=== PATIENT | female | born 1995 ===

== ENCOUNTER 2018-10-07 05:47 | Inpatient (IN) | payer MEDICAID, SELFPAY ==
[2018-10-07 06:44] VITALS: BMI 34.0
[2018-10-07] MEDS ORDERED: NS / Oxytocin 40 units/1000ml 1,000 ML IV PRN (06:56)
[2018-10-07] MEDS ORDERED: Lidocaine 1% (PF) 30 ML VIAL SC PRN (06:56)
[2018-10-07] MEDS ORDERED: Calcium Gluc 4.6 MEQ/10 ML (100 MG/ML) SLOW IVP PRN (06:56)
[2018-10-07] MEDS ORDERED: Butorphanol Tartrate 1 MG/ML VIAL SLOW IVP PRN (06:56)
[2018-10-07] MEDS ORDERED: Ibuprofen 800 MG TAB PO PRN (06:56)
[2018-10-07] MEDS ORDERED: Promethazine HCl 25 MG/ML VIAL IM PRN ×3 (06:56→18:23)
[2018-10-07] MEDS ORDERED: HYDROcodone/Acetaminophen 5/325 mg Tablet PO PRN ×3 (06:56→19:07)
[2018-10-07] MEDS ORDERED: Magnesium Sulfate 20 gm/500 ml 20 GM/500 ML BAG IVPB SCH (07:00)
[2018-10-07] MEDS ORDERED: Magnesium Sulfate 20 GM/WATER 500 ML BAG IVPB SCH (07:00)
--- NOTE | 2018-10-07 07:00 | PDOC.LDHP ---
Labor and Delivery H&P HPI: Patuent brought in from [facility] Cc: "arrested in labor at 8cm" HPI: 23 yo at 41 weeks 2 days with "no cervical change since last pm at 1800...was 8cm". Our exam here reveals cervix to only be 4-5cm, BOWI. No Morales, no visual changes, no RUQ pain. Good FM. Review of Systems: Complete ROS complete and as per HPI Current gestational age (weeks): 41 (2 days) Dating criteria: last menstrual period Grav: 2 Para: 0 Current complications: none Abnormal US findings: No Current medications: pre-sophie vitamins Allergies/Adverse Reactions: Allergies Allergy/AdvReac Type Severity Reaction Status Date / Time No Known Drug Allergies Allergy Verified 10/07/18 06:33 - Physical Exam Vital signs reviewed and normal: yes Abnormal vital signs: BP was 152/72 General: NAD Heart: RRR Lungs: CTAB Abdomen: gravid Extremeties: no edema FHT: category 1 [place] contractions every: irregular - Vaginal Exam cm dilated: 4 (max 5) Effacement: 50% Station: -1 - Assessment L&D Assessment: term patient in labor (Full term at 21 weeks 2 days with persistent latent phase; PIH suspected) - Plan Plan: admit to L&D, informed consent obtained, magnesium for seizure prophylaxis , anesthesia consult for pain management, other (WE will start pitocin for augemntation due to PIH and EGA. I will order urine protein:creatinine, and CMP in addition to routine labs; Magsulfate for siezure prophylaxis)
[2018-10-07] MEDS: Lactated Ringer's 1,000 ML IV SCH ×2 (07:28→15:35)
[2018-10-07 07:35] LABS: Hemoglobin 12.8 g/dL (12.0-16.0); Mean Corpuscular HGB CONC 33.6 g/dL (32.0-36.0); Mean Corpuscular Hemoglobin 30.7 pg (27.0-31.0); Mean Corpuscular Volume 91.6 fL (78.0-98.0); Platelet Count 212 thou/uL (130-400); RBC Distribution Width 14.1 % (11.5-14.5); Red Blood Cell (RBC) Count 4.16 mill/uL (4.20-5.40); White Blood Cell (WBC) Count 11.6 thou/uL (4.8-10.8)
[2018-10-07] MEDS ORDERED: Fentanyl 4 mcg/Bup 0.1% Cadd 100 ML ONE ×2 (07:41→15:15)
[2018-10-07 07:58] LABS: ALT (SGPT) 8 U/L (8-55); AST (SGOT) 17 U/L (5-34); Albumin 3.9 g/dL (3.5-5.0); Alkaline Phosphatase 168 U/L (40-150); Anion Gap 16 mmol/L (10-20); BUN (Urea Nitrogen) 7 mg/dL (7.0-18.7); Bilirubin, Total 0.5 mg/dL (0.2-1.2); Calc. Creatinine Clearance 194 mL/min (70-130); Calcium 9.6 mg/dL (7.8-10.44); Carbon Dioxide 19 mmol/L (22-29); Chloride 105 mmol/L (98-107); Estimated GFR-MDRD Greater than 90; Globulin 2.9 g/dL (2.4-3.5); Glucose 97 mg/dL (70-105); Potassium 3.7 mmol/L (3.5-5.1); Protein, Total 6.8 g/dL (6.0-8.3); Sodium 136 mmol/L (136-145)
--- NOTE | 2018-10-07 08:06 | PDOC.EVN ---
Event Note - Event Note Event Note: CBC and CMP are normal, Uprotein pending
[2018-10-07] MEDS ORDERED: Lidocaine 1.5%/Epinephrine 1:200,000 5 ML AMPUL IJ ONE (08:08)
[2018-10-07 08:15] LABS: Syphilis Antibody Nonreactive (Nonreactive); Syphilis Antibody Index 0.02 S/CO (<1.00 Non-Reactive)
[2018-10-07] MEDS ORDERED: Lactated Ringer's 500 ML IV PRN (08:25)
[2018-10-07] MEDS ORDERED: ePHEDrine/0.9% NaCl/PF SYRINGE 50 mg/10 ml SLOW IVP PRN (08:25)
[2018-10-07] MEDS ORDERED: Eucerin (Mineral Oil/Petrolatum,White) 30 gm Jar TOP PRN ×2 (08:25→18:23)
[2018-10-07] MEDS ORDERED: Ondansetron PF 4 MG/2 ML Vial IVP PRN ×3 (08:25→19:07)
[2018-10-07] MEDS ORDERED: diphenhydrAMINE 50 MG/ML VIAL IVP PRN ×2 (08:25→18:23)
[2018-10-07] MEDS ORDERED: Naloxone HCl 0.4 mg/ml Vial IVP PRN ×4 (08:25→18:23)
[2018-10-07] MEDS ORDERED: Acetaminophen 325 MG TAB PO PRN ×2 (08:25→19:07)
--- NOTE | 2018-10-07 08:25 | PDOC.EVN ---
Event Note - Event Note Event Note: Received report from Dr. Childs. at 41 weeks here from [facility]. Told was 8 cm, exam here now 4-5 cm. BPs elevated on admit. Pitocin and Mg ordered. Getting epidural now.
[2018-10-07] MEDS: NS w/ Oxytocin 10 units 500 ML IV SCH ×2 (08:28→09:00)
[2018-10-07] MEDS: Fentanyl 4 mcg/Bupivacaine 0.1% Cassette 100 ML EPIDURAL SCH ×2 (08:30→15:38)
[2018-10-07] MEDS ORDERED: Communication Order-Pharmacy FS SCH ×2 (08:30→18:30)
[2018-10-07 08:37] LABS: HBSAg Index 0.21 S/CO (0-0.99); HIV (1/2) Antibody/Antigen Non-Reactive (NonReactive); HIV 1/2 INDEX 0.08 S/CO (<1.00); Hep B Surf Ag Non-Reactive S/CO (NonReactive)
[2018-10-07 09:40] LABS: Creatinine, Urine 31.33 mg/dL (47-110)
--- NOTE | 2018-10-07 10:01 | PDOC.EVN ---
Event Note - Event Note Event Note: Comfortable with epidural. Bps are reassuring now. Labs are negative, urine dip is trace. Fhts stable, reassuring. UCs q 2- 4 min, pit at 6 mu/min. Arom- small amt. of thick mec. Plan; Place IUPC for amnioinfusion. Cont. pitocin. Will defer Mg at this time.
[2018-10-07] MEDS ORDERED: Bupivacaine HCl 0.25%/Epi 0.0005/PF 10 ML VIAL FS ONE (11:11)
--- NOTE | 2018-10-07 12:48 | PDOC.EVN ---
Event Note - Event Note Event Note: Remains comfortable with epidural. SVE remains 5 cm per labor RN. FHTs stable, reassuring. UCs q 2-3 mins. Pit at 10 mu/min. IUPC with infusion in place. A/P; no progress since last exam, watch closely.
--- NOTE | 2018-10-07 14:11 | PDOC.EVN ---
Event Note - Event Note Event Note: Comfortable. SVE now 7/90/0, -1, vtx. Fhts stable. UCs q 2-3 mins. Pit at 12 mu/min. Plan: Cont. pitocin and amnioinfusion.
--- NOTE | 2018-10-07 16:43 | PDOC.EVN ---
Event Note - Event Note Event Note: Comfortable, epidural rebolused. SVe remains 7 cm, now with edema of cervix and caput of vertex. Fhts stable, reassuring. Ucs q 2-3 mins. Pit decreased to 6 earlier for hyperstimulated pattern. A/P: no progress, advised 1* C/S for FTP. Risks/benefits discussed.
[2018-10-07] MEDS ORDERED: Bicitra 30 ML UDCUP ONE (16:46)
[2018-10-07] MEDS ORDERED: CEFAZOLIN 2 GM/50 ML BAG ONE (16:46)
[2018-10-07] MEDS ORDERED: Lidocaine 2% 10 ML INJ ONE (17:47)
[2018-10-07] MEDS ORDERED: Lidocaine 2% PF 5 ML VIAL ONE (18:00)
[2018-10-07] MEDS ORDERED: Ketorolac Tromethamine 30 MG/ML VIAL ONE (18:00)
[2018-10-07] MEDS ORDERED: PHENYLEPHRINE-NS 100 MCG/ML 10 ML SYRINGE ONE (18:00)
[2018-10-07] MEDS ORDERED: Ondansetron PF 4 MG/2 ML Vial ONE (18:00)
[2018-10-07] MEDS ORDERED: Oxytocin 10 UNITS/ML VIAL ONE (18:13)
[2018-10-07] MEDS ORDERED: Misoprostol 200 MCG TAB ONE (18:13)
[2018-10-07] MEDS ORDERED: Methylergonovine 0.2 MG/ML VIAL ONE (18:14)
[2018-10-07] MEDS ORDERED: Ondansetron HCl/PF 4 MG/2 ML Vial IVP PRN (18:23)
[2018-10-07] MEDS ORDERED: Promethazine HCl 25 MG SUPP PR PRN (18:23)
[2018-10-07] MEDS ORDERED: Naloxone HCl 0.4 mg/ml Vial IV PRN (18:23)
[2018-10-07] MEDS ORDERED: L&D-Morphine 4 MG/ML VIAL SLOW IVP PRN (18:23)
[2018-10-07] MEDS ORDERED: Meperidine HCl/PF 25 MG/ML VIAL SLOW IVP PRN (18:23)
[2018-10-07] MEDS ORDERED: HYDROmorphone 2 MG/ML VIAL SLOW IVP PRN (18:23)
[2018-10-07] MEDS ORDERED: Tranexamic Acid 1,000 MG/10 ML VIAL ONE (18:26)
[2018-10-07] MEDS ORDERED: Fentanyl 100 MCG/2 ML VIAL ONE (18:32)
[2018-10-07] MEDS ORDERED: Adacel (T-DAP) 0.5 ML SYRINGE IM ONE (19:07)
[2018-10-07] MEDS ORDERED: Lanolin Ointment 7 GM TUBE TOP PRN (19:07)
[2018-10-07] MEDS ORDERED: Simethicone Chewable 80 MG TAB PO PRN (19:07)
[2018-10-07] MEDS ORDERED: Morphine PF 1 MG/ML SYR ONE (19:15)
[2018-10-07] MEDS: Docusate Calcium (SURFAK) 240 MG CAP PO SCH (21:05)
[2018-10-07 21:46] LABS: #Lymphocytes 0.8 thou/uL (1.20-3.40); #Monocytes 0.8 thou/uL (0.11-0.59); #Neutrophils 12.9 thou/uL (1.40-6.50); %Basophils 0.1 % (0.0-1.0); %Eosinophils 0.1 % (0.0-10.0); %Lymphocytes 5.2 % (21.0-51.0); %Monocytes 5.5 % (0.0-10.0); Hemoglobin 9.6 g/dL (12.0-16.0); Mean Corpuscular HGB CONC 33.6 g/dL (32.0-36.0); Mean Corpuscular Hemoglobin 31.3 pg (27.0-31.0); Mean Corpuscular Volume 92.9 fL (78.0-98.0); Platelet Count 152 thou/uL (130-400); Red Blood Cell (RBC) Count 3.08 mill/uL (4.20-5.40); White Blood Cell (WBC) Count 14.5 thou/uL (4.8-10.8)
[2018-10-07] MEDS ORDERED: Acetaminophen 1,000 MG in Premix Bag 1 BAG IVPB PRN (23:59)
--- NOTE | 2018-10-08 01:16 | OP ---
DATE OF PROCEDURE: 10/07/2018 SURGEON: Mychal Rees MD [employer] SURGEON: Ted Chiu DO PROCEDURE: Primary low segment transverse section via Pfannenstiel incision. FINDINGS: 1. Viable male , weight 9 pounds 4 ounces. Apgars 8 and 8, found in the transverse presentation. 2. Normal uterus, tubes, and ovaries bilaterally. 3. Uterine atony requiring treatment with Pitocin drip, Methergine 0.2 mg IM, Cytotec 800 mg per rectum, and TXA 1 g given intravenously with good response. ESTIMATED BLOOD LOSS: 1000 mL, QBL pending. COMPLICATIONS: None. PROPHYLAXIS: Ancef 2 g prior to incision. TECHNIQUE IN DETAIL: After good epidural anesthesia was achieved, the patient was prepped and draped in usual sterile fashion in the supine position with a leftward tilt. A transverse incision in the skin was made two fingerbreadths above the symphysis pubis and the incision was carried down into the abdominal cavity. Uterus was identified, and a bladder flap was created in the perineum. A transverse incision was made across the lower uterine segment. The fetus was found in the occiput transverse presentation. This was delivered and the cord was clamped and cut. The baby was handed to neonatology personnel. Cord blood was then obtained. The uterus was curetted with a dry lap pad to remove all remaining placental fragments. Closure of the uterine incision was begun using a running locking suture of Monocryl. In the left angle, some interrupted stitches were required for complete hemostasis. Atony was encountered throughout closure of the uterus. She was given Pitocin drip, Methergine, and Cytotec along with TXA as described above. The uterus was replaced in the abdominal cavity and the pelvic gutters were cleared of all clots and debris. The fascia was then closed using two sutures of Monocryl brought laterally to the midline. The subcutaneous tissue was irrigated well and was made dry using Bovie coagulation technique. Interrupted sutures of plain gut were used to approximate the subcutaneous tissue. The skin was closed with metal blayne. Sponge, lap, and needle counts were correct x2. At the conclusion of the case, her fundus was firm and there was no vaginal bleeding seen.. Job ID: [id number] [facility]
[2018-10-08] MEDS: Misoprostol 100 MCG TAB PO SCH ×3 (01:26→16:48)
[2018-10-08] MEDS ORDERED: Ketorolac Tromethamine 30 MG/ML VIAL IVP PRN (02:00)
[2018-10-08] MEDS ORDERED: Clindamycin/D5W 900 mg/50 ml Premix Bag ONE ×2 (02:02→10:05)
--- NOTE | 2018-10-08 02:04 | PDOC.PP ---
Post Progress Note Post Day #: POD#1 Subjective: C/o chills. Temp now = 102. PO intake tolerated: no Flatus: no Ambulation: no Weight Weight 84.368 kg - Physical Examination Respiratory: non-labored breathing Abdominal: no distention Skin: CS incision dry & intact Neurological: no gross focal deficits Psychiatric: A&Ox3 Result Diagrams: 10/07/18 21:36 10/07/18 07:24 Additional Labs: Post Labs Blood Type B POSITIVE 10/07/18 07:24 Hep Bs Antigen Non-Reactive S/CO (NonReactive) 10/07/18 07:24 - Assessment/Plan POD#1 s/p 1* C/S for FTP with long labor, atony with significant EBL. CBC earlier; WBC+ 14.5, H/H= 9.6/28.6. Will start Gent/Clinda Observe closely.
[2018-10-08] MEDS: Lactated Ringer's 1,000 ML IV SCH ×4 (02:10→16:26)
[2018-10-08] MEDS: Gentamicin Sulfate 80 MG in Premix Bag 1 BAG IVPB SCH ×3 (03:06→23:11)
[2018-10-08] MEDS: Ampicillin 2 GM in Sodium Chloride 0.9% 100 ML IVPB SCH ×3 (06:34→17:28)
[2018-10-08 07:07] LABS: Hemoglobin 7.8 g/dL (12.0-16.0); Mean Corpuscular Hemoglobin 30.9 pg (27.0-31.0); Mean Corpuscular Volume 93.7 fL (78.0-98.0); Mean Platelet Volume 7.1 fL (7.4-10.4); Platelet Count 146 thou/uL (130-400); RBC Distribution Width 13.9 % (11.5-14.5); Red Blood Cell (RBC) Count 2.53 mill/uL (4.20-5.40); White Blood Cell (WBC) Count 11.9 thou/uL (4.8-10.8)
[2018-10-08] MEDS: Ibuprofen 800 MG TAB PO SCH ×4 (08:49→21:44)
[2018-10-08] MEDS: Prenatal Vitamin 1 TAB PO SCH (08:49)
[2018-10-08] MEDS: Docusate Calcium (SURFAK) 240 MG CAP PO SCH ×2 (08:49→21:44)
[2018-10-08] MEDS: Clindamycin/D5W 900 MG in Premix Bag 1 BAG IVPB SCH ×3 (10:10→18:33)
[2018-10-09] MEDS: Ampicillin 2 GM in Sodium Chloride 0.9% 100 ML IVPB SCH ×4 (00:34→18:24)
[2018-10-09] MEDS: Clindamycin/D5W 900 MG in Premix Bag 1 BAG IVPB SCH ×3 (02:09→18:33)
[2018-10-09] MEDS: Ibuprofen 800 MG TAB PO SCH ×3 (06:35→21:37)
[2018-10-09] MEDS: Gentamicin Sulfate 80 MG in Premix Bag 1 BAG IVPB SCH ×2 (06:35→17:15)
[2018-10-09] MEDS ORDERED: HYDROcodone/Acetaminophen 5/325 mg Tablet PO PRN (07:43)
--- NOTE | 2018-10-09 08:08 | PRG ---
DATE OF SERVICE: 10/09/2018 POSTOPERATIVE NOTE SUBJECTIVE: The patient is a 23-year-old female, who is postop day 2, status post a primary for failure to progress. The patient was placed on ampicillin, gentamicin, and clindamycin yesterday morning for temperature of 102. The patient reports that she is tolerating p.o., voiding on her own, having moderate pain control, and is ambulating some. She reports that she has been on ibuprofen and Tylenol that just has not been sufficient for her pain. OBJECTIVE: VITAL SIGNS: Temperature 98.6, pulse of 70, respiratory rate of 18, and blood pressure 120/58. GENERAL: She appears to be in no acute distress. She is alert and oriented. Cooperative and pleasant to interact with. HEENT: Head is normocephalic, atraumatic. Incision is clean, dry, and intact with blayne. EXTREMITIES: Nontender. There is a foul odor smell that the patient reports was present at the time of delivery. ASSESSMENT AND PLAN: The patient is postop day 2, status post a primary section for failure to progress on ampicillin, gentamicin, and clindamycin for chorioamnionitis and a T-max of 102 around the time of delivery. The patient will continue on antibiotics for the next 24 hours and will be monitoring this odor smell. I have also added hydrocodone to her pain regimen to help for better pain control. We will reassess tomorrow. Job ID: [id number]
[2018-10-09] MEDS: Docusate Calcium (SURFAK) 240 MG CAP PO SCH ×2 (08:51→21:37)
[2018-10-09] MEDS: Prenatal Vitamin 1 TAB PO SCH (08:51)
[2018-10-09] MEDS: HYDROcodone/Acetaminophen 5/325 mg Tablet PO PRN ×2 (08:55→21:38)
[2018-10-09] MEDS: Lactated Ringer's 1,000 ML IV SCH ×2 (08:57→17:19)
--- NOTE | 2018-10-09 22:18 | PDOC.PP ---
Post Progress Note Post Day #: 2 Subjective: Doing well, no new issues PO intake tolerated: yes Flatus: yes Ambulation: yes Vital Signs (12 hours) Temp Pulse Resp BP Pulse Ox 10/09/18 20:10 98.9 F 101 H 20 116/56 L 99 10/09/18 16:00 99.2 F 93 22 H 125/60 98 10/09/18 11:33 98.4 F 91 20 127/63 99 Weight Weight 186 lb TMax 99.2 10/09 1600 - Physical Examination General: NAD Cardiovascular: no m/r/g Respiratory: clear to auscultation bilaterally Abdominal: + bowel sounds Extremities: negative homans (B) Skin: CS incision dry & intact, no rash Neurological: no gross focal deficits Psychiatric: A&Ox3, normal affect Result Diagrams: 10/08/18 06:59 10/07/18 07:24 Additional Labs: Post Labs Blood Type B POSITIVE 10/07/18 07:24 Hep Bs Antigen Non-Reactive S/CO (NonReactive) 10/07/18 07:24 Rubella IgG Antibody 5.04 index (Immune >0.99) 10/07/18 07:24 (1) delivery delivered Code(s): O82 - ENCOUNTER FOR DELIVERY WITHOUT INDICATION Status: Acute - Assessment/Plan POD 2 currently on ABX A/G.C with no fever in 24 hrs. I have ordered to stop ABX in anticpation of [facility] tomorrow 10/10/18. [place] out on POD 7-10.
[2018-10-10] MEDS: Lactated Ringer's 1,000 ML IV SCH ×2 (00:02→08:03)
[2018-10-10] MEDS: Ampicillin 2 GM in Sodium Chloride 0.9% 100 ML IVPB SCH ×2 (00:55→05:44)
[2018-10-10] MEDS: Gentamicin Sulfate 80 MG in Premix Bag 1 BAG IVPB SCH ×2 (01:00→08:03)
[2018-10-10] MEDS: Clindamycin/D5W 900 MG in Premix Bag 1 BAG IVPB SCH ×2 (02:46→08:03)
--- NOTE | 2018-10-10 05:26 | PDOC.PP ---
Post Progress Note Post Day #: 3; Discharge note Subjective: ready for discharge PO intake tolerated: yes Flatus: yes Ambulation: yes Vital Signs (12 hours) Temp Pulse Resp BP Pulse Ox 10/10/18 00:35 98.1 F 89 20 108/52 L 10/09/18 20:10 98.9 F 101 H 20 116/56 L 99 Weight Weight 186 lb - Physical Examination General: NAD Cardiovascular: no m/r/g Respiratory: clear to auscultation bilaterally Abdominal: + bowel sounds, lochia, no distention Extremities: negative homans (B) Skin: CS incision dry & intact (stapels) Neurological: no gross focal deficits Psychiatric: A&Ox3, normal affect Result Diagrams: 10/08/18 06:59 10/07/18 07:24 Additional Labs: Post Labs Blood Type B POSITIVE 10/07/18 07:24 Hep Bs Antigen Non-Reactive S/CO (NonReactive) 10/07/18 07:24 Rubella IgG Antibody 5.04 index (Immune >0.99) 10/07/18 07:24 (1) delivery delivered Code(s): O82 - ENCOUNTER FOR DELIVERY WITHOUT INDICATION Status: Acute - Assessment/Plan POD 3 s/p CS for FTP with chorio...now afebrile. BPs ok. OK for planned discharge today, blayne out next week. Final Hct was 23; EBL was 1000ml Final DX: section delivered Chorioamnionitis
[2018-10-10] MEDS: Ibuprofen 800 MG TAB PO SCH (06:57)
[2018-10-10 08:22] VITALS: BP 122/56; TEMP 98
[2018-10-10] MEDS: Docusate Calcium (SURFAK) 240 MG CAP PO SCH (09:35)
[2018-10-10] MEDS: HYDROcodone/Acetaminophen 5/325 mg Tablet PO PRN (09:35)
[2018-10-10] MEDS: Prenatal Vitamin 1 TAB PO SCH (09:35)
== END 2018-10-10 14:15 | disposition home or self-care (01) | DRG 786 ==
LOC: L&D 05:47 → 3SE 10-08 11:00
PROVIDERS: ADMIT Obstetrics & Gynecology; ATTEND Obstetrics & Gynecology
PROC: 10D00Z1 Extraction of Products of Conception, Low, Open Approach (ICD-10-PCS; principal; 2018-10-07)
DX: O48.0 Post-term pregnancy (principal); O41.1230 Chorioamnionitis, third trimester, not applicable or unspecified; O62.2 Other uterine inertia; Z3A.41 41 weeks gestation of pregnancy; Z37.0 Single live birth
CPT/HCPCS: 36415; 51702; 80053; 81003; 82570; 84156; 85027; 86762; 86780; 86850; 86900; 86901; 87340; 87389; 88307; 90715; J0131; J0290; J1580; J1885; J2001; J2210; J2274; J2405; J2590; J3010; J3490; J7050